=== PATIENT | female | born 1980 | race Two or more races ===

== ENCOUNTER 2020-03-15 17:44 | Emergency (ER) | payer MEDICAID ==
[~2020-03-15] VITALS: Ht 162.6 cm; Wt 65.0 kg
[2020-03-15 17:53] VITALS: BP 130/91
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
[2020-03-15] MEDS ORDERED: ONDANSETRON 2MG/ML, 2ML ONE (18:11)
[2020-03-15] MEDS ORDERED: NALOXONE 0.4 MG/ML, 1ML ONE (18:11)
[2020-03-15 18:14] LABS: MEAN CORPUSCULAR HEMOGLOBIN 22.2 pg (27.0-34.8); MEAN CORPUSCULAR VOLUME 71.6 fL (80-100); MEAN PLATELET VOLUME 8.1 fL (7.4-10.4); PLATELET COUNT 432 x10^3/uL (130-400); RED BLOOD COUNT 5.26 x10^6/uL (3.82-5.3); RED CELL DISTRIBUTION WIDTH 25.8 % (9.6-15.2)
--- NOTE | 2020-03-15 18:17 | NUR ---
PT MEDICATED PER MAR, NO CHANGE TO PT CONDITION.
[2020-03-15 18:21] LABS: ALANINE AMINOTRANSFERASE 21 U/L (12-78); ALBUMIN 4.3 g/dL (3.4-5.0); ANION GAP 8 mmol/L (5-15); CALCIUM 8.6 mg/dL (8.5-10.1); CHLORIDE 109 mmol/L (98-107)
[2020-03-15 18:25] LABS: SALICYLATE LEVEL < 1.7 mg/dL (2.8-20.0)
[2020-03-15 18:26] LABS: ALKALINE PHOSPHATASE 58 U/L (45-117); BILIRUBIN,TOTAL 0.2 mg/dL (0.2-1.0); CREATININE 0.73 mg/dL (0.55-1.02); TOTAL PROTEIN 9.2 g/dL (6.4-8.2)
[2020-03-15] MEDS ORDERED: NALOXONE 0.4 MG/ML, 1ML IVPush PRN (18:30)
[2020-03-15] MEDS ORDERED: ONDANSETRON 2MG/ML, 2ML IVPush ONE (18:30)
[2020-03-15] MEDS ORDERED: PLEASE ENTER ALLERGIES MC SCH (18:30)
[2020-03-15] MEDS ORDERED: SODIUM CHLORIDE 0.9% 1,000ML IVBOLUS ONE (18:30)
--- NOTE | 2020-03-15 18:41 | NUR ---
PT SHIVERING IN BED. PROVIDED WITH MORE BLANKETS AND BEAR HUGGER FOR COMFORT. FRIEND CONTINUES AT BEDSIDE, CALL LIGHT IN REACH.
[2020-03-15 18:42] LABS: ANISOCYTOSIS 1+; BASOPHILS # (AUTO) 0.04 x10^3/uL (0-0.1); BASOPHILS % (AUTO) 1 % (0-1); EOSINOPHILS # (AUTO) 0.08 x10^3/uL (0-0.4); EOSINOPHILS % (AUTO) 1 % (1-7); LYMPHOCYTES # (AUTO) 2.99 x10^3/uL (1-3.4); LYMPHOCYTES % (AUTO) 42 % (22-44); MD MORPH REVIEW ONLY; MICROCYTOSIS 1+; MONOCYTES # (AUTO) 0.32 x10^3/uL (0.2-0.8); MONOCYTES % (AUTO) 5 % (2-9); NEUTROPHILS # (AUTO) 3.73 x10^3/uL (1.8-6.8); NEUTROPHILS % (AUTO) 52 % (42-75)
[2020-03-15 18:43] LABS: <PLATELET ESTIMATE> INCREASED; <PLT MORPHOLOGY> NORMAL PLT MORPH; HYPOCHROMIA 1+; TARGET CELLS 1+
--- NOTE | 2020-03-15 18:46 | NUR ---
PT TO IMAGING AT THIS TIME.
[2020-03-15 19:53] LABS: AMPHETAMINE SCREEN, URINE Negative (Negative); BARBITURATE SCREEN, URINE Negative (Negative); BENZODIAZEPINE SCREEN, URINE Negative (Negative); CANNABINOID SCREEN, URINE Negative (Negative); COCAINE SCREEN, URINE Negative (Negative); METHADONE SCREEN, URINE Negative (Negative); OPIATE SCREEN, URINE Negative (Negative)
[2020-03-15] MEDS ORDERED: KETOROLAC 30 MG/1 ML ONE (20:16)
[2020-03-15] MEDS ORDERED: KETOROLAC 30 MG/1 ML IVPush ONE (20:30)
== END 2020-03-15 21:12 | disposition home or self-care (01) ==
LOC: ED 18:14
DX: F10.120 Alcohol abuse with intoxication, uncomplicated (principal); R41.82 Altered mental status, unspecified; R94.31 Abnormal electrocardiogram [ECG] [EKG]; Y90.9 Presence of alcohol in blood, level not specified; R06.89 Other abnormalities of breathing
CPT/HCPCS: 36415; 70450; 71045; 80053; 80307; 84703; 85025; 93005; 96361; 96374; 96375; 99285; J1885; J2310; J2405; J7030